=== PATIENT | male | born 1935 | race Caucasian/White ===

== ENCOUNTER 2018-04-14 11:00 | Day surgery (SDC) | payer MEDICARE, BC ==
[~2018-04-14] VITALS: Ht 182.9 cm; Wt 98.3 kg
[~2018-04-14 11:00] MED LIST: ACET650T2 PO; ATOR10TA70 PO; CLEM2.68 PO; ESOM40CA30 PO; MELO-102 PO; MULT-1141 PO; VALS160T2 PO; VITC500T PO
[2018-04-14] MEDS ORDERED: normal saline 1000ml 1,000 ML IV PRN (11:30)
[2018-04-14] MEDS ORDERED: MELO15TA13 PO (11:37)
[2018-04-14] MEDS ORDERED: ATRNS (11:37)
[2018-04-14] MEDS ORDERED: IRBE300T43 PO (11:37)
[2018-04-14] MEDS ORDERED: FLO0.4C PO (11:37)
[2018-04-14] MEDS ORDERED: HYDR12.597 PO (11:37)
[2018-04-14] MEDS ORDERED: ALBU8.5H8 IH (11:37)
[2018-04-14] MEDS ORDERED: LORA10TA65 PO (11:37)
[2018-04-14] MEDS ORDERED: DUTA0.5C40 PO (11:37)
[2018-04-14 11:40] VITALS: BP 200/99
[2018-04-14 11:59] LABS: BASOPHILS # (AUTO) 0.1 X10'3 (0-0.2); BASOPHILS % (AUTO) 0.9 % (0-1); EOSINOPHILS # (AUTO) 0.2 X10'3 (0-0.9); EOSINOPHILS % (AUTO) 2.7 % (0-6); HEMATOCRIT 36.7 % (42.0-52.0); HEMOGLOBIN 12.5 g/dl (14.0-17.9); LYMPHOCYTES # (AUTO) 1.7 X10'3 (1.1-4.8); MEAN CORPUSCULAR HEMOGLOBIN 34.1 PG (27.0-31.0); MEAN CORPUSCULAR HGB CONC 34.1 % (33.0-36.5); MEAN PLATELET VOLUME 6.8 FL (7.4-10.4); MONOCYTES # (AUTO) 0.5 X10'3 (0-0.9); MONOCYTES % (AUTO) 6.8 % (2-12); NEUTROPHILS # (AUTO) 4.3 X10'3 (1.8-7.7); NEUTROPHILS % (AUTO) 64.6 % (42-75); PLATELET COUNT 183 X10'3 (140-440); RED BLOOD COUNT 3.67 X10'6 (4.70-6.10); RED CELL DISTRIBUTION WIDTH 13.2 % (11.5-14.5); WHITE BLOOD COUNT 6.7 X10'3 (4.5-11.0)
[2018-04-14 12:09] LABS: ALBUMIN 3.9 G/DL (3.4-5.0); ANION GAP 7 (8-16); BLOOD UREA NITROGEN 28 MG/DL (7-18); BUN/CREATININE RATIO 26.4 (5.4-32.0); CALCIUM 9.5 MG/DL (8.5-10.1); CHLORIDE 97 MMOL/L (99-107); CREATININE 1.06 MG/DL (0.60-1.10); GLUCOSE 102 MG/DL (70-104); POTASSIUM 4.5 MMOL/L (3.5-5.1); SODIUM 133 MMOL/L (135-145); TOTAL CARBON DIOXIDE 29.1 MMOL/L (24-32); eGFR 67 ML/MIN
[2018-04-14] MEDS ORDERED: midazolam 2 mg/2 ml injection ONE (14:02)
[2018-04-14] MEDS ORDERED: fentaNYL/PF 50MCG/1 ML 2ML syringe ONE (14:02)
[2018-04-14] MEDS ORDERED: LIDOcaine 1% (10mg/ml) 2ml vial ONE (14:03)
[2018-04-14 14:04] VITALS: BP 172/89
[2018-04-14 14:39] VITALS: BP 163/79
[2018-04-14 14:50] VITALS: BP 186/99
[2018-04-14 15:00] VITALS: BP 188/100
[2018-04-14 15:15] VITALS: BP 166/88
== END 2018-04-14 15:40 | disposition home or self-care (01) ==
LOC: SSTAY O 11:00
PROVIDERS: ATTEND Radiology Vascular & Interventional Radiology
DX: L76.34 Postprocedural seroma of skin and subcutaneous tissue following other procedure (principal); Y83.8 Other surgical procedures as the cause of abnormal reaction of the patient, or of later complication, without mention of misadventure at the time of the procedure; Y92.89 Other specified places as the place of occurrence of the external cause; I10 Essential (primary) hypertension; E78.5 Hyperlipidemia, unspecified; M06.9 Rheumatoid arthritis, unspecified; K21.9 Gastro-esophageal reflux disease without esophagitis; M19.90 Unspecified osteoarthritis, unspecified site; Z87.891 Personal history of nicotine dependence; Z87.09 Personal history of other diseases of the respiratory system; Z72.89 Other problems related to lifestyle; Z98.52 Vasectomy status; Z79.891 Long term (current) use of opiate analgesic; Z79.899 Other long term (current) drug therapy; Z98.890 Other specified postprocedural states; Z83.6 Family history of other diseases of the respiratory system
CPT/HCPCS: 36415; 49406; 80048; 85025; 87070; J3010; J3490; J7030; 77012; J2250